=== PATIENT | male | born 1955 | race Caucasian/White ===

== ENCOUNTER 2018-05-04 15:53 | Inpatient (IN) | payer BC, OTHER ==
[~2018-05-04] VITALS: Ht 170.2 cm; Wt 66.6 kg
[2018-05-04] MEDS ORDERED: NS 1,000 ML IV ONE (17:00)
[2018-05-04] MEDS ORDERED: ONDANSETRON 4MG/2ML VIAL (J2405) IV ONE (17:00)
[2018-05-04 17:04] LABS: BASO % 0.2 % (0.0-1.0); EOS # 0.1 10^3/uL (0.0-0.50); EOS % 0.4 % (0.0-3.0); HEMATOCRIT 49.3 % (42.0-52.0); HEMOGLOBIN 17.1 g/dl (13.5-17.5); LYMPH # 1.5 10^3/uL (1.5-4.5); LYMPH % 8.9 % (24.0-44.0); MEAN CORPUSCULAR HEMOGLOBIN 33.9 pg (27.0-33.0); MEAN CORPUSCULAR HGB CONC 34.7 g/dl (32.0-36.5); MEAN CORPUSCULAR VOLUME 97.8 fl (80.0-96.0); MONO # 1.2 10^3/uL (0.0-0.8); MONO % 6.8 % (0.0-5.0); NEUTROPHILS # 14.1 10^3/uL (1.8-7.7); NEUTROPHILS % 82.6 % (36.0-66.0); PLATELET COUNT, AUTOMATED 557 10^3/uL (150-450); RED BLOOD COUNT 5.04 10^6/uL (4.30-6.10)
[2018-05-04 17:06] LABS: INR 0.94; PARTIAL THROMBOPLASTIN TIME 27.8 SECONDS (25.4-37.6); PROTHROMBIN TIME 12.7 SECONDS (12.1-14.4)
[2018-05-04] MEDS: MORPHINE 2 MG/ML 1ML SYRINGE (J2270) IV PRN ×2 (17:17→18:50)
[2018-05-04 17:25] LABS: ALBUMIN 4.1 GM/DL (3.2-5.2); ALT/SGPT 13 U/L (12-78); BILIRUBIN,DIRECT 0.1 MG/DL (0.0-0.2); BILIRUBIN,TOTAL 0.5 MG/DL (0.2-1.0); BLOOD UREA NITROGEN 13 MG/DL (7-18); CALCIUM LEVEL 9.3 MG/DL (8.8-10.2); CARBON DIOXIDE LEVEL 23 MEQ/L (21-32); CHLORIDE LEVEL 102 MEQ/L (98-107); CPK CREATINE PHOSPHOKINASE 65 U/L (39-308); CREATININE FOR GFR 1.04 MG/DL (0.70-1.30); GLOMERULAR FILTRATION RATE > 60.0 (>49); GLUCOSE, FASTING 111 MG/DL (70-100); LIPASE 99 U/L (73-393); MB/CK RELATIVE INDEX 3.23 (< OR =4); POTASSIUM SERUM 4.2 MEQ/L (3.5-5.1); SODIUM LEVEL 136 MEQ/L (136-145); TOTAL PROTEIN 8.4 GM/DL (6.4-8.2); TROPONIN I < 0.02 NG/ML (< 0.10)
[2018-05-04] MEDS ORDERED: ISOVUE-370 76% 100ML VIAL (Q9967) As Ordered ONE (17:30)
--- NOTE | 2018-05-04 18:46 | REPVR ---
EXAM: CT Abdomen and Pelvis With Contrast EXAM DATE/TIME: 05/04/2018 5:40 PM CLINICAL HISTORY: 62 years old, male; Pain; Abdominal pain; Generalized; Additional info: Pain/distended TECHNIQUE: Axial computed tomography images of the abdomen and pelvis with intravenous contrast. All CT scans at this facility use at least one of these dose optimization techniques: automated exposure control; mA and/or kV adjustment per patient size (includes targeted exams where dose is matched to clinical indication); or iterative reconstruction. Coronal and sagittal reformatted images were created and reviewed. CONTRAST: 100 ml of iSOVUE 370 administered intravenously. COMPARISON: No relevant prior studies available. FINDINGS: Lower thorax: Mild thickening of the interlobular septa in the right middle lobe. Scarring in the medial basal segment of the right lower lobe. ABDOMEN: Liver: Normal. No mass. Gallbladder and bile ducts: Normal. No calcified stones. No ductal dilation. Pancreas: Normal. No ductal dilation. Spleen: Normal. No splenomegaly. Adrenals: Normal. No mass. Kidneys and ureters: Normal. No hydronephrosis. Stomach and bowel: There is a abnormal distention of small bowel loops in the midabdomen at the approximate level of the distal jejunum and proximal ileum. Stool and fluid are seen throughout the colon. No pneumatosis. Appendix: No evidence of appendicitis. PELVIS: Bladder: Unremarkable as visualized. Reproductive: Prostate measures 4.3 x 6.3 x 4 cm. ABDOMEN and PELVIS: Intraperitoneal space: Small amount of the edema noted within the mesentery.No free air. No significant fluid collection. Bones/joints: No acute fracture. No dislocation. Soft tissues: Unremarkable. Vasculature: Aneurysmal dilatation of the infrarenal abdominal aorta with a maximum diameter of 3.2 cm. The aneurysmal segment extends for 3.1 cm. Lymph nodes: Normal. No enlarged lymph nodes. IMPRESSION: 1. High grade partial versus early complete small bowel obstruction. 2. Infrarenal abdominal aortic aneurysm with maximum diameter of 3.1 cm. Electronically signed by: Allyson Milner On 05/04/2018 18:46:36 PM
--- NOTE | 2018-05-04 19:13 | ECGEPIP ---
Stationary ECG Study [facility] - ED Test Date: 2018-05-04 Pat Name: RAUL MACKAY Department: Room: - Gender: M Manager Foreign: JOYCE : 1955 Requested By: JAMA Duong Order Number: [id number] Reading MD: Pennie Crisostomo Measurements Intervals [place] Rate: 87 P: 48 IA: 159 QRS: 55 QRSD: 113 T: -26 QT: 391 QTc: 473 Interpretive Statements SINUS RHYTHM POSSIBLE LEFT ATRIAL ENLARGEMENT POSSIBLE INFERIOR MYOCARDIAL INFARCTION, OF INDETERMINATE AGE NSTTW ABNORMALITY NO PRIOR FOR COMPARISON Electronically Signed On 05-04-2018 19:13:16 EST by Pennie Crisostomo
[2018-05-04] MEDS ORDERED: PIPERACILLIN/TAZOBACTAM SOD 3.375 GM in D5W MINI-BAG PLUS 50 ML IV ONE (19:30)
[2018-05-04] MEDS ORDERED: NS 1,000 ML IV SCH (19:30)
[2018-05-04] MEDS ORDERED: IBUPOTC PO (19:38)
[2018-05-04] MEDS: NS 1,000 ML IV SCH (20:31)
[2018-05-04] MEDS ORDERED: MORPHINE 4 MG/ML 1ML VIAL/SYRINGE (J2270) IV PRN (20:45)
[2018-05-04] MEDS ORDERED: ONDANSETRON 4MG/2ML VIAL (J2405) IV PRN (20:45)
[2018-05-04] MEDS ORDERED: KETOROLAC 30 MG/ML VIAL (J1885) IV PRN (20:45)
[2018-05-04] MEDS: SENOKOT S TAB PO SCH (21:00)
[2018-05-05] MEDS: PIPERACILLIN/TAZOBACTAM SOD 3.375 GM in D5W MINI-BAG PLUS 50 ML IV SCH ×4 (02:00→21:08)
[2018-05-05] MEDS: NS 1,000 ML IV SCH ×2 (04:31→12:31)
[2018-05-05] MEDS: SENOKOT S TAB PO SCH ×2 (07:54→21:08)
[2018-05-05 08:07] LABS: HEMOGLOBIN 15.4 g/dl (13.5-17.5); MEAN CORPUSCULAR HEMOGLOBIN 33.6 pg (27.0-33.0); MEAN CORPUSCULAR HGB CONC 34.2 g/dl (32.0-36.5); PLATELET COUNT, AUTOMATED 459 10^3/uL (150-450); RED BLOOD COUNT 4.59 10^6/uL (4.30-6.10); WHITE BLOOD COUNT 13.7 10^3/uL (4.0-10.0)
[2018-05-05 08:26] LABS: BLOOD UREA NITROGEN 12 MG/DL (7-18); CALCIUM LEVEL 7.8 MG/DL (8.8-10.2); CARBON DIOXIDE LEVEL 23 MEQ/L (21-32); CHLORIDE LEVEL 109 MEQ/L (98-107); CREATININE FOR GFR 0.97 MG/DL (0.70-1.30); GLOMERULAR FILTRATION RATE > 60.0 (>49); GLUCOSE, FASTING 94 MG/DL (70-100); POTASSIUM SERUM 4.3 MEQ/L (3.5-5.1); SODIUM LEVEL 140 MEQ/L (136-145)
[2018-05-05] MEDS: ENOXAPARIN 40 MG/0.4 ML SYRINGE (J1650) SC SCH (08:26)
--- NOTE | 2018-05-05 09:05 | IPNPDOC ---
Text Note Date of Service The patient was seen on 05/05/18. NOTE No acute events overnight. They were unable to place his NGT last night, christiano small, he has not had any emesis or nausea, and he has had multiple loose BMs. He denies nausea, emesis, fevers, or shortness of breath, and his abdomen is less distended. VSSAF NAD abd - soft, NT, less distended labs - see below A) 62y/o male with partial vs. complete distal SBO vs. ileus from an enteritis improved P) clq diet abx ambulate if doing well in the AM, then I will advance to regular diet and dc Frantz Cano DO VS,Fishbone, I+O VS, Fishbone, I+O Laboratory Tests 05/04/18 16:18 Red Blood Count 5.04, Mean Corpuscular Volume 97.8 H, Mean Corpuscular Hemoglobin 33.9 H, Mean Corpuscular Hemoglobin Concent 34.7, Red Cell Distribution Width 13.9, Neutrophils (%) (Auto) 82.6 H, Lymphocytes (%) (Auto) 8.9 L, Monocytes (%) (Auto) 6.8 H, Eosinophils (%) (Auto) 0.4, Basophils (%) (Auto) 0.2, Neutrophils # (Auto) 14.1 H, Lymphocytes # (Auto) 1.5, Monocytes # (Auto) 1.2 H, Eosinophils # (Auto) 0.1, Basophils # (Auto) 0.0 05/05/18 07:40 Red Blood Count 4.59, Mean Corpuscular Volume 98.0 H, Mean Corpuscular Hemoglob in 33.6 H, Mean Corpuscular Hemoglobin Concent 34.2, Red Cell Distribution Width 14.3, Calcium Level 7.8 #L Vital Signs Date Time Temp Pulse Resp B/P (MAP) Pulse Ox O2 Delivery O2 Flow Rate FiO2 05/05/18 08:45 70 05/05/18 08:00 128/66 (86) 05/05/18 07:39 96.6 18 97 Room Air I&O- Last 24 Hours up to 6 AM 05/05/18 06:00 Intake Total 1000 ml Balance 1000 ml ERICA CANO DO May 05, 2018 09:05
[2018-05-05 13:00] VITALS: BP 133/71
[2018-05-05 16:00] VITALS: BP 120/72
[2018-05-05 17:45] VITALS: BP 123/74
[2018-05-05] MEDS ORDERED: ACETAMINOPHEN TAB 650MG DOSE (2X325MG) PO PRN (18:30)
--- NOTE | 2018-05-05 18:36 | HPE ---
DATE OF ADMISSION: 05/04/2018 CHIEF COMPLAINT: Abdominal pain. HISTORY OF PRESENT ILLNESS: The patient is 62-year-old male who woke up suddenly and 01:00 a.m. with complaints of abdominal pain. He had some nausea and vomiting throughout the day and he came to the emergency it came into emergency room last evening for evaluation. The ER he was still thrown up a couple times white count 17, lactic acid was normal 1.9. CT scan findings were suspicious for high-grade partial versus complete distal small bowel obstruction. No signs of any transition point. He was he denies having any symptoms like this in the past. No recent travel or trauma to the abdomen. No changes in medications or diet. No change in activity. He has had a previous appendectomy. No other surgeries to the abdomen that he is aware of no other symptoms recently for fevers, chills. PAST MEDICAL HISTORY: Negative. PAST SURGICAL HISTORY: Appendectomy. ALLERGIES: None. HOME MEDICATIONS: None. SOCIAL HISTORY: Denies drug, alcohol, tobacco abuse. FAMILY HISTORY: Noncontributory. REVIEW OF SYSTEMS: Per positives in HPI. PHYSICAL EXAMINATION: GENERAL: Alert and oriented times three. No acute distress. VITALS: Temperature 99.3, pulse 90, respirations 18, blood pressure 149/90, pulse ox 98% room air. HEENT: Pupils equal round react to light accommodation. HEART: S1-S2 regular rate and rhythm. LUNGS: Clear auscultation bilaterally. ABDOMEN: Soft, tender to palpation lower abdomen slightly distended. No rebound, guarding or rigidity. EXTREMITIES: No clubbing, cyanosis or edema. LABORATORY DATA: White count 17, hemoglobin 17.1, platelets 557, lactic acid 1.9. IMAGING STUDIES: CT abdomen, pelvis shows high-grade partial versus early complete small bowel obstruction. ASSESSMENT/PLAN: The patient 62-year-old male with distal partial versus complete small bowel obstruction versus possible ileus from a gastroenteritis. Recommendation at this time is to treat with nothing by mouth, IV fluids, NG tube to low intermittent suction, antibiotics, I explained to him that we will attempt this for least 72 hours. If he shows signs of improvement starts passing gas and bowel movements then we will slowly remove the NG tube and advance his diet, Otherwise if he does not progress or if he shows any signs of decline then we will consider urgent procedure to explore and determine what the problem is. All of his questions were answered. He is in agreement having the NG tube placed and we will continue to monitor him closely.
[2018-05-05 20:00] VITALS: BP 126/76
[2018-05-06] VITALS: BP 132/78
[2018-05-06] MEDS: NS 1,000 ML IV SCH ×2 (03:10→04:31)
[2018-05-06] MEDS: PIPERACILLIN/TAZOBACTAM SOD 3.375 GM in D5W MINI-BAG PLUS 50 ML IV SCH ×4 (03:10→20:57)
[2018-05-06 04:00] VITALS: BP 121/71
[2018-05-06 06:53] LABS: HEMATOCRIT 41.7 % (42.0-52.0); HEMOGLOBIN 13.8 g/dl (13.5-17.5); MEAN CORPUSCULAR HEMOGLOBIN 33.3 pg (27.0-33.0); MEAN CORPUSCULAR HGB CONC 33.1 g/dl (32.0-36.5); MEAN CORPUSCULAR VOLUME 100.5 fl (80.0-96.0); PLATELET COUNT, AUTOMATED 411 10^3/uL (150-450); RED BLOOD COUNT 4.15 10^6/uL (4.30-6.10); WHITE BLOOD COUNT 10.1 10^3/uL (4.0-10.0)
[2018-05-06 07:21] LABS: BLOOD UREA NITROGEN 9 MG/DL (7-18); CALCIUM LEVEL 7.7 MG/DL (8.8-10.2); CARBON DIOXIDE LEVEL 23 MEQ/L (21-32); CHLORIDE LEVEL 109 MEQ/L (98-107); CREATININE FOR GFR 0.89 MG/DL (0.70-1.30); GLOMERULAR FILTRATION RATE > 60.0 (>49); GLUCOSE, FASTING 88 MG/DL (70-100); POTASSIUM SERUM 3.8 MEQ/L (3.5-5.1); SODIUM LEVEL 139 MEQ/L (136-145)
[2018-05-06 07:30] VITALS: BP 130/78
[2018-05-06] MEDS: SENOKOT S TAB PO SCH ×2 (08:41→20:57)
[2018-05-06] MEDS: ENOXAPARIN 40 MG/0.4 ML SYRINGE (J1650) SC SCH (08:42)
[2018-05-06 12:00] VITALS: BP 108/62
[2018-05-06] MEDS ORDERED: NORCO, ANEXSIA 5/325MG TABLET (HYDROcodone/ACETAMINOPHEN) PO PRN (13:15)
--- NOTE | 2018-05-06 13:15 | IPNPDOC ---
Text Note Date of Service The patient was seen on 05/06/18. NOTE No acute events overnight. He had one fever up to 101 overnight, but he denies any emesis or nausea, and he has had multiple loose BMs. He denies nausea, emesis, fevers, or shortness of breath, and his abdomen is less distended. VSSAF NAD abd - soft, NT, less distended labs - see below A) 62y/o male with partial vs. complete distal SBO vs. ileus from an enteritis improved P) reg diet abx ambulate if doing well in the AM and afebrile overnight, then I will d/c tomorrow am. Frantz Cano DO VS,Fishbone, I+O VS, Fishbone, I+O Laboratory Tests 05/06/18 06:19 Red Blood Count 4.15 L, Mean Corpuscular Volume 100.5 H, Mean Corpuscular Hemoglobin 33.3 H, Mean Corpuscular Hemoglobin Concent 33.1, Red Cell Distribution Width 14.3, Calcium Level 7.7 L Vital Signs Date Time Temp Pulse Resp B/P (MAP) Pulse Ox O2 Delivery O2 Flow Rate FiO2 05/06/18 07:30 99.3 69 24 130/78 (95) 98 05/05/18 12:24 Room Air I&O- Last 24 Hours up to 6 AM 05/06/18 06:00 Intake Total 480 ml Output Total 300 ml Balance 180 ml ERICA CANO DO May 06, 2018 13:14
[2018-05-06 16:00] VITALS: BP 108/59
[2018-05-06 20:00] VITALS: BP 112/67
[2018-05-07] VITALS: BP 124/72
[2018-05-07] MEDS: PIPERACILLIN/TAZOBACTAM SOD 3.375 GM in D5W MINI-BAG PLUS 50 ML IV SCH ×2 (01:59→09:41)
[2018-05-07 04:00] VITALS: BP 116/77
[2018-05-07 06:07] LABS: HEMATOCRIT 38.3 % (42.0-52.0); MEAN CORPUSCULAR HEMOGLOBIN 34.2 pg (27.0-33.0); MEAN CORPUSCULAR HGB CONC 33.9 g/dl (32.0-36.5); MEAN CORPUSCULAR VOLUME 100.8 fl (80.0-96.0); PLATELET COUNT, AUTOMATED 364 10^3/uL (150-450); WHITE BLOOD COUNT 8.7 10^3/uL (4.0-10.0)
[2018-05-07 06:39] LABS: BLOOD UREA NITROGEN 9 MG/DL (7-18); CALCIUM LEVEL 7.8 MG/DL (8.8-10.2); CARBON DIOXIDE LEVEL 21 MEQ/L (21-32); CHLORIDE LEVEL 110 MEQ/L (98-107); CREATININE FOR GFR 0.94 MG/DL (0.70-1.30); GLOMERULAR FILTRATION RATE > 60.0 (>49); GLUCOSE, FASTING 86 MG/DL (70-100); POTASSIUM SERUM 3.7 MEQ/L (3.5-5.1); SODIUM LEVEL 139 MEQ/L (136-145)
[2018-05-07] MEDS: SENOKOT S TAB PO SCH (09:00)
[2018-05-07] MEDS: ENOXAPARIN 40 MG/0.4 ML SYRINGE (J1650) SC SCH (09:00)
--- NOTE | 2018-05-09 21:22 | DSES ---
DATE OF ADMISSION: 05/04/2018 DATE OF DISCHARGE: 05/07/2018 ADMISSION DIAGNOSIS: Partial small-bowel obstruction. DISCHARGE DIAGNOSIS: Partial small-bowel obstruction. HOSPITAL COURSE: The patient is a 62-year-old male who presented on the with complaints of abdominal distension, pain, nausea and vomiting. He was found to have a distal partial versus complete small-bowel obstruction on CT as well as a leukocytosis over 17,000. He was admitted, treated like a small-bowel obstruction with medical treatment. He did not have a nasogastric (NG) tube placed. Multiple attempts were made and they could not get it to pass in the emergency room (ER). However, even without the nasogastric (NG) tube he had no more nausea and vomiting once reaching the ER. He was passing gas and bowel movements on the evening of the into the morning of the . He was started on ice chips and sips of water that day. He continued to improve. The next morning he was still doing well. White count was improving, still passing gas and having bowel movements. However, he did have a fever. I advanced him to a clear liquid diet, watched him for another 24 hours. He was started on regular diet and continued to do well. He has now tolerated the regular diet for the past 12 hours without any problems. No abdominal pain. His laboratories are back to normal range. The plan is to discharge home today. He will follow up as needed as an outpatient. I explained to him that if this similar symptoms do happen again soon we will plan the same treatment. However, after the next time we will plan for diagnostic laparoscopy to see if we can find some adhesions that are causing an intermittent obstruction for him. All of his questions are answered and he will be discharged home today. He will not need any medications upon discharge.
== END 2018-05-07 11:35 | disposition home or self-care (01) | DRG 247 ==
LOC: M ED 15:53 → M ED INP 20:31 → M PED 05-05 17:56
PROVIDERS: ADMIT Surgery; ATTEND Surgery
DX: K56.600 Partial intestinal obstruction, unspecified as to cause (principal)

== ENCOUNTER → 2021-06-12 | Outpatient (REF) | payer OTHER ==
[~2021-06-12] MED LIST: IBUPOTC PO
== END ==
LOC: M SFHCADAM 08:37
PROVIDERS: ATTEND Physician Assistant
DX: Z00.00 Encounter for general adult medical examination without abnormal findings (principal)

== ENCOUNTER → 2022-06-18 | Outpatient (REF) | payer OTHER ==
[2022-06-18 13:29] LABS: BASO # 0.1 10^3/uL (0.0-0.2); BASO % 0.8 % (0.0-1.0); EOS # 0.5 10^3/uL (0.0-0.5); EOS % 6.2 % (0.0-3.0); HEMATOCRIT 43.3 % (42.0-52.0); HEMOGLOBIN 14.3 g/dl (13.5-17.5); LYMPH # 1.3 10^3/uL (1.5-5.0); LYMPH % 16.4 % (24.0-44.0); MEAN CORPUSCULAR HEMOGLOBIN 34.2 pg (27.0-33.0); MEAN CORPUSCULAR VOLUME 103.6 fl (80.0-96.0); MONO # 0.8 10^3/uL (0.0-0.8); MONO % 9.8 % (2.0-8.0); NEUTROPHILS # 5.2 10^3/uL (1.5-8.5); PLATELET COUNT, AUTOMATED 606 10^3/uL (150-450); RED BLOOD COUNT 4.18 10^6/uL (4.30-6.10); WHITE BLOOD COUNT 7.9 10^3/uL (4.0-10.0)
[2022-06-18 13:43] LABS: HEMOGLOBIN A1c 5.2 % (4.0-6.0)
[2022-06-18 14:04] LABS: ALBUMIN 3.6 G/DL (3.2-5.2); ALKALINE PHOSPHATASE 72 U/L (46-116); ALT/SGPT 13 U/L (7.0-40); AST/SGOT 20 U/L (<34); BILIRUBIN,TOTAL 0.4 MG/DL (0.3-1.2); BLOOD UREA NITROGEN 12 MG/DL (9-23); CALCIUM LEVEL 9.5 MG/DL (8.3-10.6); CARBON DIOXIDE LEVEL 27 MMOL/L (20-31); CHLORIDE LEVEL 106 MMOL/L (98-107); CHOLESTEROL LEVEL 191 MG/DL (<200); CHOLESTEROL RISK RATIO 5.19 (<5); CREATININE FOR GFR 0.92 MG/DL (0.70-1.30); GLOMERULAR FILTRATION RATE > 60.0 (>49); GLUCOSE, FASTING 95 MG/DL (74-106); HDL CHOLESTEROL 36.8 MG/DL (>40); LDL CHOLESTEROL 117.2 MG/DL (<100); NON-HDL-C 154.2 MG/DL; POTASSIUM SERUM 5.3 MMOL/L (3.5-5.1); SODIUM LEVEL 138 MMOL/L (136-145); TOTAL PROTEIN 7.2 G/DL (5.7-8.2); TRIGLYCERIDES LEVEL 185 MG/DL (<150)
[2022-06-18 14:05] LABS: THYROID STIMULATING HORMONE 1.073 uIU/ML (0.55-4.78)
== END ==
LOC: M SFHCADAM 10:39
PROVIDERS: ATTEND Physician Assistant Medical
DX: F17.218 Nicotine dependence, cigarettes, with other nicotine-induced disorders (principal); I25.10 Atherosclerotic heart disease of native coronary artery without angina pectoris; I50.42 Chronic combined systolic (congestive) and diastolic (congestive) heart failure; I10 Essential (primary) hypertension; I25.5 Ischemic cardiomyopathy

== ENCOUNTER → 2022-12-05 | Outpatient (CLI) | payer MEDICARE, OTHER | LOC: M RAD 14:42 | PROVIDERS: ATTEND Physician Assistant Medical | DX: Z12.2 Encounter for screening for malignant neoplasm of respiratory organs (principal); F17.218 Nicotine dependence, cigarettes, with other nicotine-induced disorders ==

== ENCOUNTER 2022-12-17 18:49 | Emergency (ER) | payer MEDICARE, MEDICAID ==
[~2022-12-17] VITALS: Ht 170.2 cm; Wt 97.1 kg
[2022-12-17 19:54] LABS: BASO # 0.1 10^3/uL (0.0-0.2); BASO % 0.8 % (0.0-1.0); EOS # 0.4 10^3/uL (0.0-0.5); EOS % 5.1 % (0.0-3.0); HEMATOCRIT 43.3 % (42.0-52.0); HEMOGLOBIN 14.3 g/dl (13.5-17.5); LYMPH # 1.7 10^3/uL (1.5-5.0); LYMPH % 20.5 % (24.0-44.0); MEAN CORPUSCULAR VOLUME 102.9 fl (80.0-96.0); NEUTROPHILS # 5.1 10^3/uL (1.5-8.5); NEUTROPHILS % 61.2 % (36.0-66.0); PLATELET COUNT, AUTOMATED 655 10^3/uL (150-450); RED BLOOD COUNT 4.21 10^6/uL (4.30-6.10); WHITE BLOOD COUNT 8.4 10^3/uL (4.0-10.0)
[2022-12-17 20:02] LABS: BLOOD UREA NITROGEN 16 MG/DL (9-23); CALCIUM LEVEL 8.7 MG/DL (8.3-10.6); CARBON DIOXIDE LEVEL 23 MMOL/L (20-31); CHLORIDE LEVEL 107 MMOL/L (98-107); CREATININE FOR GFR 1.05 MG/DL (0.70-1.30); GLOMERULAR FILTRATION RATE > 60.0 (>49); GLUCOSE, FASTING 87 MG/DL (74-106); SODIUM LEVEL 135 MMOL/L (136-145)
[2022-12-17 20:37] VITALS: BP 158/85; TEMP 96.9; O2SAT 100
== END 2022-12-17 20:49 | disposition home or self-care (01) ==
LOC: M ED 18:49
DX: E87.5 Hyperkalemia (principal); I45.81 Long QT syndrome; I10 Essential (primary) hypertension; E78.5 Hyperlipidemia, unspecified; F17.200 Nicotine dependence, unspecified, uncomplicated; F10.10 Alcohol abuse, uncomplicated; Z86.79 Personal history of other diseases of the circulatory system; Z79.1 Long term (current) use of non-steroidal anti-inflammatories (NSAID)
CPT/HCPCS: 36415; 80048; 80061; 80076; 82550; 85025; 93005; 99284; G0463

== ENCOUNTER → 2023-12-10 | Outpatient (REF) | payer MEDICARE, OTHER ==
[2023-12-10 14:17] LABS: ALBUMIN 3.8 G/DL (3.2-5.2); ALKALINE PHOSPHATASE 65 U/L (46-116); ALT/SGPT < 9 U/L (7.0-40); AST/SGOT 18 U/L (<34); BILIRUBIN,TOTAL 0.6 MG/DL (0.3-1.2); BLOOD UREA NITROGEN 16 MG/DL (9-23); CALCIUM LEVEL 9.9 MG/DL (8.3-10.6); CARBON DIOXIDE LEVEL 21 MMOL/L (20-31); CHLORIDE LEVEL 112 MMOL/L (98-107); CHOLESTEROL LEVEL 184 MG/DL (<200); CHOLESTEROL RISK RATIO 4.97 (<5); CREATININE FOR GFR 1.01 MG/DL (0.70-1.30); GLOMERULAR FILTRATION RATE > 60.0 (>49); GLUCOSE, FASTING 110 MG/DL (74-106); LDL CHOLESTEROL 116.8 MG/DL (<100); MAGNESIUM LEVEL 1.8 MG/DL (1.8-2.4); POTASSIUM SERUM 5.8 MMOL/L (3.5-5.1); SODIUM LEVEL 136 MMOL/L (136-145); TOTAL PROTEIN 7.6 G/DL (5.7-8.2); TRIGLYCERIDES LEVEL 151 MG/DL (<150)
[2023-12-10 14:18] LABS: BASO # 0.1 10^3/uL (0.0-0.2); BASO % 0.8 % (0.0-1.0); EOS # 0.6 10^3/uL (0.0-0.5); EOS % 6.4 % (0.0-3.0); HEMATOCRIT 42.9 % (42.0-52.0); HEMOGLOBIN 14.1 g/dl (13.5-17.5); LYMPH # 1.6 10^3/uL (1.5-5.0); MEAN CORPUSCULAR HEMOGLOBIN 34.7 pg (27.0-33.0); MEAN CORPUSCULAR HGB CONC 32.9 g/dl (32.0-36.5); MEAN CORPUSCULAR VOLUME 105.7 fl (80.0-96.0); MONO # 0.9 10^3/uL (0.0-0.8); MONO % 10.3 % (2.0-8.0); NEUTROPHILS # 5.5 10^3/uL (1.5-8.5); NEUTROPHILS % 63.9 % (36.0-66.0); PLATELET COUNT, AUTOMATED 728 10^3/uL (150-450); RED BLOOD COUNT 4.06 10^6/uL (4.30-6.10); WHITE BLOOD COUNT 8.6 10^3/uL (4.0-10.0)
[2023-12-10 14:20] LABS: TOTAL 25(OH) VITAMIN D 61.9 NG/ML (20.0-100.0)
== END ==
LOC: M SFHCADAM 09:01
PROVIDERS: ATTEND Physician Assistant Medical
DX: I25.10 Atherosclerotic heart disease of native coronary artery without angina pectoris (principal); I11.0 Hypertensive heart disease with heart failure; E55.9 Vitamin D deficiency, unspecified; I50.42 Chronic combined systolic (congestive) and diastolic (congestive) heart failure

== ENCOUNTER → 2023-12-17 | Outpatient (REF) | payer MEDICARE, OTHER ==
[2023-12-17 13:55] LABS: ALBUMIN 3.5 G/DL (3.2-5.2); BLOOD UREA NITROGEN 14 MG/DL (9-23); CALCIUM LEVEL 9.6 MG/DL (8.3-10.6); CARBON DIOXIDE LEVEL 24 MMOL/L (20-31); CHLORIDE LEVEL 111 MMOL/L (98-107); CREATININE FOR GFR 0.94 MG/DL (0.70-1.30); GLOMERULAR FILTRATION RATE > 60.0 (>49); GLUCOSE, FASTING 90 MG/DL (74-106); PHOSPHORUS LEVEL 3.4 MG/DL (2.4-5.1); POTASSIUM SERUM 5.5 MMOL/L (3.5-5.1); SODIUM LEVEL 138 MMOL/L (136-145)
[2023-12-17 14:16] LABS: HEMOGLOBIN A1c 4.9 % (4.0-6.0)
== END ==
LOC: M SFHCADAM 09:36
PROVIDERS: ATTEND Physician Assistant Medical
DX: E87.5 Hyperkalemia (principal); R73.01 Impaired fasting glucose

== ENCOUNTER → 2024-01-27 | Outpatient (CLI) | payer MEDICARE | LOC: M RAD 07:18 | PROVIDERS: ATTEND Physician Assistant Medical | DX: Z12.2 Encounter for screening for malignant neoplasm of respiratory organs (principal); F17.218 Nicotine dependence, cigarettes, with other nicotine-induced disorders ==

== ENCOUNTER → 2024-09-27 | Outpatient (CLI) | payer MEDICARE ==
[~2024-09-27] MED LIST changes: +ENTR1TAB7 PO; +ERGO500029 PO; +METO1TAB32 PO; +NICO21PAT TD; +PANT-23 PO; +PROT40IN4 IV; +ROSU5TAB49 PO; +SPIR-10 PO; +SUCR1TA PO
[2024-09-27 16:07] LABS: ALT/SGPT < 9 U/L (7.0-40); AST/SGOT 20 U/L (<34); CALCIUM LEVEL 9.4 MG/DL (8.3-10.6); CARBON DIOXIDE LEVEL 24 MMOL/L (20-31); CHLORIDE LEVEL 109 MMOL/L (98-107); CREATININE FOR GFR 1.17 MG/DL (0.70-1.30); GLOMERULAR FILTRATION RATE 67.5 (>49); POTASSIUM SERUM 5.8 MMOL/L (3.5-5.1); SODIUM LEVEL 142 MMOL/L (136-145)
[2024-09-27 16:10] LABS: PLATELET COUNT, AUTOMATED 941 10^3/uL (150-450)
== END ==
LOC: M PLALAB 11:41
PROVIDERS: ATTEND Physician Assistant Medical
DX: E83.51 Hypocalcemia (principal); D64.9 Anemia, unspecified

== ENCOUNTER → 2024-10-06 | Outpatient (REF) | payer MEDICARE ==
[2024-10-06 17:33] LABS: CALCIUM LEVEL 9.0 MG/DL (8.3-10.6); CARBON DIOXIDE LEVEL 24.0 MMOL/L (20-31); CHLORIDE LEVEL 109.0 MMOL/L (98-107); CREATININE FOR GFR 1.26 MG/DL (0.70-1.30); GLOMERULAR FILTRATION RATE 61.7 (>49); POTASSIUM SERUM 5.4 MMOL/L (3.5-5.1); SODIUM LEVEL 141.0 MMOL/L (136-145)
== END ==
LOC: M SFHCADAM 11:29
PROVIDERS: ATTEND Physician Assistant Medical
DX: E87.5 Hyperkalemia (principal)

== ENCOUNTER → 2024-10-17 | Outpatient (CLI) | payer MEDICARE | LOC: M SOG 07:02 | PROVIDERS: ATTEND Neuromusculoskeletal Medicine, Sports Medicine | DX: M25.511 Pain in right shoulder (principal); M19.011 Primary osteoarthritis, right shoulder ==

== ENCOUNTER → 2024-12-06 | Outpatient (REF) | payer MEDICARE ==
[2024-12-06 15:08] LABS: BASO # 0.1 10^3/uL (0.0-0.2); BASO % 1.0 % (0.0-1.0); EOS # 0.6 10^3/uL (0.0-0.5); EOS % 5.6 % (0.0-3.0); LYMPH # 1.3 10^3/uL (1.5-5.0); LYMPH % 13.1 % (24.0-44.0); MONO # 1.0 10^3/uL (0.0-0.8); MONO % 9.9 % (2.0-8.0); NEUTROPHILS # 6.9 10^3/uL (1.5-8.5); NEUTROPHILS % 69.8 % (36.0-66.0); PLATELET COUNT, AUTOMATED 657 10^3/uL (150-450)
[2024-12-06 15:17] LABS: TOTAL 25(OH) VITAMIN D 77.4 NG/ML (20.0-100.0)
[2024-12-06 15:18] LABS: VITAMIN B12 LEVEL 445 PG/ML (211-911)
[2024-12-06 15:22] LABS: ERYTHROCYTE SEDIMENTATION RATE 35 mm/hr (0-20); IRON (FE) 78 UG/DL (65-175); PERCENT SATURATION 22.3 % (19.7-50.0)
[2024-12-06 15:23] LABS: ALT/SGPT < 9 U/L (7.0-40); AST/SGOT 20 U/L (<34); C REACTIVE PROTEIN QUANTITATIV < 0.50 MG/DL (<1.0); CALCIUM LEVEL 9.1 MG/DL (8.3-10.6); CARBON DIOXIDE LEVEL 23 MMOL/L (20-31); CHLORIDE LEVEL 107 MMOL/L (98-107); CHOLESTEROL LEVEL 166 MG/DL (<200); CHOLESTEROL RISK RATIO 4.37 (<5); CREATININE FOR GFR 1.17 MG/DL (0.70-1.30); GLOMERULAR FILTRATION RATE 67.5 (>49); LDL CHOLESTEROL 92.3 MG/DL (<100); NON-HDL-C 128.1 MG/DL; POTASSIUM SERUM 5.5 MMOL/L (3.5-5.1); SODIUM LEVEL 136 MMOL/L (136-145); TRIGLYCERIDES LEVEL 179 MG/DL (<150)
== END ==
LOC: M SFHCADAM 10:20
PROVIDERS: ATTEND Physician Assistant Medical
DX: I50.42 Chronic combined systolic (congestive) and diastolic (congestive) heart failure (principal); I25.10 Atherosclerotic heart disease of native coronary artery without angina pectoris; I10 Essential (primary) hypertension; I25.5 Ischemic cardiomyopathy; E55.9 Vitamin D deficiency, unspecified; D75.839 Thrombocytosis, unspecified; D64.9 Anemia, unspecified

== ENCOUNTER 2024-12-09 10:07 | Day surgery (SDC) | payer MEDICARE ==
[~2024-12-09] VITALS: Ht 170.2 cm; Wt 67.3 kg
[~2024-12-09 10:07] MED LIST changes: +LIDOCAINE 2% 100 MG/5 ML SDV (FOR ANES.) As Ordered ONE
[2024-12-09 12:06] VITALS: TEMP 97.7
[2024-12-09 12:34] VITALS: BP 99/61; O2SAT 98
== END 2024-12-09 12:41 | disposition home or self-care (01) ==
LOC: M OPP 10:07
PROVIDERS: ATTEND Surgery
DX: Z12.11 Encounter for screening for malignant neoplasm of colon (principal); D12.6 Benign neoplasm of colon, unspecified; K63.89 Other specified diseases of intestine; Z95.810 Presence of automatic (implantable) cardiac defibrillator; Z79.899 Other long term (current) drug therapy; F17.210 Nicotine dependence, cigarettes, uncomplicated

== ENCOUNTER → 2025-01-17 | Outpatient (CLI) | payer MEDICARE ==
[~2025-01-17] MED LIST changes: +FIBER PO; -LIDOCAINE 2% 100 MG/5 ML SDV (FOR ANES.) As Ordered ONE; +LOKE10PA PO; +PANT40TA29; +SPIR-10
[2025-01-17 13:42] LABS: BASO # 0.1 10^3/uL (0.0-0.2); BASO % 0.9 % (0.0-1.0); EOS # 0.6 10^3/uL (0.0-0.5); EOS % 7.1 % (0.0-3.0); LYMPH # 1.2 10^3/uL (1.5-5.0); LYMPH % 15.1 % (24.0-44.0); MONO # 0.9 10^3/uL (0.0-0.8); MONO % 11.4 % (2.0-8.0); NEUTROPHILS # 5.3 10^3/uL (1.5-8.5); NEUTROPHILS % 65.1 % (36.0-66.0); PLATELET COUNT, AUTOMATED 607 10^3/uL (150-450)
[2025-01-17 14:05] LABS: ALT/SGPT < 9 U/L (7.0-40); AST/SGOT 20 U/L (<34); CALCIUM LEVEL 9.7 MG/DL (8.3-10.6); CARBON DIOXIDE LEVEL 27 MMOL/L (20-31); CHLORIDE LEVEL 109 MMOL/L (98-107); CREATININE FOR GFR 1.16 MG/DL (0.70-1.30); GLOMERULAR FILTRATION RATE 68.2 (>49); POTASSIUM SERUM 5.2 MMOL/L (3.5-5.1); SODIUM LEVEL 144 MMOL/L (136-145)
== END ==
LOC: M RAD 08:40
PROVIDERS: ATTEND Student in an Organized Health Care Education/Training Program
DX: D75.839 Thrombocytosis, unspecified (principal); Z87.891 Personal history of nicotine dependence

== ENCOUNTER → 2025-02-08 | Outpatient (REF) | payer MEDICARE ==
[~2025-02-08] MED LIST changes: +ECOT81TA5 PO; +HYDR500C3 PO
[2025-02-08 17:33] LABS: LDH LACTATE DEHYDROGENASE 206 U/L (120-246)
[2025-02-08 17:34] LABS: ALT/SGPT < 9 U/L (7.0-40); AST/SGOT 15 U/L (<34); CALCIUM LEVEL 8.8 MG/DL (8.3-10.6); CARBON DIOXIDE LEVEL 26 MMOL/L (20-31); CHLORIDE LEVEL 109 MMOL/L (98-107); CREATININE FOR GFR 1.07 MG/DL (0.70-1.30); GLOMERULAR FILTRATION RATE 75.1 (>49); POTASSIUM SERUM 4.8 MMOL/L (3.5-5.1); SODIUM LEVEL 142 MMOL/L (136-145)
[2025-02-08 17:43] LABS: BASO # 0.1 10^3/uL (0.0-0.2); BASO % 0.7 % (0.0-1.0); EOS # 0.6 10^3/uL (0.0-0.5); EOS % 6.8 % (0.0-3.0); LYMPH # 1.3 10^3/uL (1.5-5.0); LYMPH % 15.1 % (24.0-44.0); MONO # 0.7 10^3/uL (0.0-0.8); MONO % 8.1 % (2.0-8.0); NEUTROPHILS # 6.0 10^3/uL (1.5-8.5); NEUTROPHILS % 68.8 % (36.0-66.0); PLATELET COUNT, AUTOMATED 659 10^3/uL (150-450)
[2025-02-11 01:02] LABS: T P ELECTROPHORESIS SO 7.1 g/dL (6.1-8.1)
[2025-02-13 13:52] LABS: FREE KAPPA LIGHT CHAINS SERUM 38.6 mg/L (3.3-19.4); FREE LAMBDA LIGHT CHAINS SERUM 26.1 mg/L (5.7-26.3); KAPPA/LAMBDA RATIO SERUM 1.48 (0.26-1.65)
[2025-02-14 07:02] LABS: ALBUMIN SPEP 4.0 g/dL (3.8-4.8); ALPHA-1-GLOBULINS SO 0.2 g/dL (0.2-0.3); ALPHA-2-GLOBULINS SO 0.6 g/dL (0.5-0.9); BETA 2 GLOBULIN 0.4 g/dL (0.2-0.5); BETA-GLOBULIN SO 0.5 g/dL (0.4-0.6); GAMMA GLOBULINS SO 1.3 g/dL (0.8-1.7)
== END ==
LOC: M LABDRWAD 16:52
PROVIDERS: ATTEND Student in an Organized Health Care Education/Training Program
DX: D75.839 Thrombocytosis, unspecified (principal); Z79.899 Other long term (current) drug therapy

== ENCOUNTER → 2025-03-13 | Outpatient (REF) | payer MEDICARE ==
[2025-03-13 17:48] LABS: BASO # 0.0 10^3/uL (0.0-0.2); BASO % 0.8 % (0.0-1.0); EOS # 0.1 10^3/uL (0.0-0.5); EOS % 1.8 % (0.0-3.0); LYMPH # 0.8 10^3/uL (1.5-5.0); LYMPH % 19.2 % (24.0-44.0); MONO # 0.5 10^3/uL (0.0-0.8); MONO % 12.7 % (2.0-8.0); NEUTROPHILS # 2.6 10^3/uL (1.5-8.5); NEUTROPHILS % 65.2 % (36.0-66.0); PLATELET COUNT, AUTOMATED 380 10^3/uL (150-450)
[2025-03-13 17:52] LABS: ALT/SGPT < 9 U/L (7.0-40); AST/SGOT 16 U/L (<34); CALCIUM LEVEL 8.2 MG/DL (8.3-10.6); CARBON DIOXIDE LEVEL 26 MMOL/L (20-31); CHLORIDE LEVEL 110 MMOL/L (98-107); CREATININE FOR GFR 1.19 MG/DL (0.70-1.30); GLOMERULAR FILTRATION RATE 66.1 (>49); POTASSIUM SERUM 5.7 MMOL/L (3.5-5.1); SODIUM LEVEL 141 MMOL/L (136-145)
== END ==
LOC: M LABDRWAD 17:19
PROVIDERS: ATTEND Student in an Organized Health Care Education/Training Program
DX: D75.839 Thrombocytosis, unspecified (principal); Z79.899 Other long term (current) drug therapy